=== PATIENT | male | born 1950 | race Caucasian/White ===

== ENCOUNTER 2021-06-09 14:34 | Inpatient (IN) ==
[~2021-06-09 14:34] MED LIST: cefTRIAXone 1,000 MG in 0.9 % Sodium Chloride Mini Bag 100 ML IVPB SCH
[2021-06-09] MEDS ORDERED: Naloxone 0.4 MG/ML INJ IVP PRN (19:31)
[2021-06-09] MEDS ORDERED: Acetaminophen 325 MG TABLET PO PRN (19:31)
[2021-06-09] MEDS ORDERED: Ondansetron 4 MG/2 ML VIAL IVP PRN (19:31)
[2021-06-09] MEDS ORDERED: *HR* Metoprolol 5 MG/5 ML VIAL IVP ONE (19:44)
[2021-06-09] MEDS ORDERED: Dextrose Gel 15 GM/37.5 ML TUBE PO PRN ×2 (19:45)
[2021-06-09] MEDS ORDERED: D5% in Water 1,000 ML IVC PRN (19:45)
[2021-06-09] MEDS ORDERED: *HR* Dextrose 50 % in Water (Syg) 50 ML SYRINGE IVP PRN (19:45)
[2021-06-09] MEDS ORDERED: *HR* Heparin 5,000 UNIT/ML VIAL IVP PRN ×2 (19:46)
[2021-06-09] MEDS ORDERED: Perflutren Lipid Microsphere 1.3 ML in 0.9 % Sodium Chloride 8.7 ML IVP PRN (20:12)
[2021-06-09 20:31] LABS: INR 1.3
[2021-06-09 20:53] LABS: Activated Partial Thrombo Time 117.1 Seconds (26.0-36.0)
[2021-06-09] MEDS ORDERED: Vancomycin 1,750 MG in 0.9 % Sodium Chloride 250 ML IVPB SCH (21:00)
[2021-06-09] MEDS ORDERED: Morphine Sulfate 2 MG/ML SYRINGE IVP ONE (21:01)
[2021-06-09] MEDS: Heparin 25,000UNIT/250ML 1/2NS 25,000 UNIT/250 ML IV.SOLN IVC SCH (21:23)
[2021-06-09] MEDS: TACROLIMUS 1MG CAPSULE PO SCH (21:39)
[2021-06-09] MEDS: Metoprolol 100 MG TABLET PO SCH (21:40)
[2021-06-09] MEDS ORDERED: Aspirin 325 MG TABLET PO ONE (21:50)
[2021-06-09] MEDS ORDERED: Vancomycin 2,000 MG/520 ML IV.SOLN IVPB ONE (22:00)
[2021-06-09] MEDS: Melatonin 3 MG TABLET PO PRN (23:12)
[2021-06-09] MEDS: Piperacillin/Tazobactam 3.375 GM in 0.9 % Sodium Chloride Mini Bag 100 ML IVPB SCH (23:19)
[2021-06-10] MEDS: Insulin LISPRO 300 UNITS/3 ML VIAL SUBQ SCH ×4 (00:07→19:48)
[2021-06-10 05:02] LABS: Heparin anti-factor XA UFH 0.34 IU/mL (0.30-0.70)
[2021-06-10 05:43] LABS: Troponin I 1.23 ng/mL (< 0.04)
[2021-06-10 06:31] LABS: Hematocrit 37.1 % (37.5-50.1); Hemoglobin 11.7 g/dL (12.9-16.9); Mean Corpuscular HGB Conc 31.5 g/dL (31.6-35.5); Mean Corpuscular Hemoglobin 29.8 pg (28.0-33.3); Mean Corpuscular Volume 94.6 fL (83.0-100.0); Mean Platelet Volume 11.8 fL (9.4-12.4); Platelet Count 207 K/mcL (140-400); Red Blood Count 3.92 M/mcL (4.19-5.50); Red Cell Distribution Width 13.9 % (11.5-14.5); White Blood Count 22.2 K/mcL (4.3-11.1)
[2021-06-10 06:49] LABS: Albumin 3.2 g/dL (3.5-5.7); Albumin/Globulin Ratio 1.1 (1.1-2.2); Bilirubin,Total 1.2 mg/dL (0.3-1.0); Calcium 8.9 mg/dL (8.6-10.3); Potassium 4.3 mEq/L (3.5-5.1); Total Protein 6.2 g/dL (6.4-8.9)
[2021-06-10] MEDS: Piperacillin/Tazobactam 3.375 GM in 0.9 % Sodium Chloride Mini Bag 100 ML IVPB SCH ×2 (08:24→16:17)
[2021-06-10] MEDS: Azithromycin 500 MG in 0.9 % Sodium Chloride 250 ML IVPB SCH (08:26)
[2021-06-10] MEDS: Furosemide 40 MG/4 ML VIAL IVP SCH (08:27)
[2021-06-10] MEDS: TACROLIMUS 1MG CAPSULE PO SCH ×2 (08:27→20:59)
[2021-06-10] MEDS: Metoprolol 100 MG TABLET PO SCH ×2 (08:27→20:58)
[2021-06-10] MEDS: Heparin 25,000UNIT/250ML 1/2NS 25,000 UNIT/250 ML IV.SOLN IVC SCH (08:28)
[2021-06-10] MEDS ORDERED: Azithromycin 500 MG in 0.9 % Sodium Chloride 250 ML IVPB SCH (09:00)
[2021-06-10] MEDS: Insulin DETEMIR 100 UNIT/ML X5UNITS SUBQ SCH (20:58)
[2021-06-10] MEDS ORDERED: Vancomycin 1,750 MG/517.5 ML IV.SOLN IVPB SCH (22:00)
[2021-06-11] MEDS: Insulin LISPRO 300 UNITS/3 ML VIAL SUBQ SCH ×4 (00:56→19:11)
[2021-06-11] MEDS: Piperacillin/Tazobactam 3.375 GM in 0.9 % Sodium Chloride Mini Bag 100 ML IVPB SCH ×4 (00:57→23:05)
[2021-06-11] MEDS: Heparin 25,000UNIT/250ML 1/2NS 25,000 UNIT/250 ML IV.SOLN IVC SCH ×2 (02:41→21:00)
[2021-06-11] MEDS ORDERED: Furosemide 20 MG/2 ML VIAL IVP ONE (05:06)
[2021-06-11] MEDS ORDERED: Albumin 25% 25gram/100mL 25 GM/100 ML IV.SOLN IVPB ONE (05:06)
[2021-06-11] MEDS: Metoprolol 100 MG TABLET PO SCH ×2 (08:07→20:58)
[2021-06-11] MEDS: Furosemide 40 MG/4 ML VIAL IVP SCH ×2 (08:08→21:46)
[2021-06-11] MEDS: TACROLIMUS 1MG CAPSULE PO SCH ×2 (08:08→21:46)
[2021-06-11 09:05] LABS: Basophils # 0.1 K/mcL (0.0-0.2); Basophils % 0.3 %; Eosinophils # 0.1 K/mcL (0.0-0.6); Eosinophils % 0.3 %; Hematocrit 37.7 % (37.5-50.1); Immature Granulocytes % 0.8 % (0-4); Lymphocytes # 2.1 K/mcL (0.6-4.6); Lymphocytes % 9.1 %; Mean Corpuscular HGB Conc 31.8 g/dL (31.6-35.5); Mean Corpuscular Hemoglobin 29.7 pg (28.0-33.3); Mean Corpuscular Volume 93.3 fL (83.0-100.0); Mean Platelet Volume 11.9 fL (9.4-12.4); Monocytes # 1.6 K/mcL (0.0-1.3); Monocytes % 7.1 %; Neutrophils # 18.6 K/mcL (1.6-8.9); Platelet Count 257 K/mcL (140-400); Red Blood Count 4.04 M/mcL (4.19-5.50); Red Cell Distribution Width 13.7 % (11.5-14.5); Segmented Neutrophils % 82.4 %; White Blood Count 22.6 K/mcL (4.3-11.1)
[2021-06-11 09:37] LABS: BUN/Creatinine Ratio 34 (6-26); Blood Urea Nitrogen 48 mg/dL (8-23); Calcium 8.9 mg/dL (8.6-10.3); Carbon Dioxide 26 mEq/L (23-29); Chloride 108 mEq/L (98-107); Glucose 217 mg/dL (70-105); Osmolality,Calculated 317 (280-300); Potassium 3.8 mEq/L (3.5-5.1); Sodium 144 mEq/L (136-145); eGFR For African Americans > 60 (> 60); eGFR For Non-African Americans 50 (> 60)
[2021-06-11 10:26] LABS: Troponin I 0.32 ng/mL (< 0.04)
[2021-06-11] MEDS: Azithromycin 500 MG in 0.9 % Sodium Chloride 250 ML IVPB SCH (10:52)
[2021-06-11] MEDS: DilTIAZem 50 MG/50 ML IV.SOLN IVC SCH ×2 (12:10→18:39)
[2021-06-11] MEDS ORDERED: Furosemide 40 MG/4 ML VIAL IVP ONE (14:02)
[2021-06-11 14:36] LABS: C-Reactive Protein 284 mg/L (Less than 10)
[2021-06-11] MEDS: Dexmedetomidine HCl 400 MCG/100 ML MLS IVC SCH ×2 (14:46→23:04)
[2021-06-11] MEDS ORDERED: Lidocaine -MPF 1% 5 ML AMPUL INFILT ONE (15:26)
[2021-06-11] MEDS: Doxycycline 100 MG in 0.9 % Sodium Chloride Mini Bag 100 ML IVPB SCH (19:05)
[2021-06-11] MEDS: allopurinoL 100 MG TABLET PO SCH (20:58)
[2021-06-11] MEDS: Apixaban 5 MG TABLET PO SCH (20:58)
[2021-06-11] MEDS: Insulin DETEMIR 100 UNIT/ML X5UNITS SUBQ SCH (20:59)
[2021-06-11] MEDS: Dexamethasone Sodium Phos/PF 10 MG/ML VIAL IVP SCH (23:04)
[2021-06-11 23:41] LABS: Adenovirus Not Detected (Not Detect); Bordetella Pertussis Not Detected (Not Detect); Chlamydophila pneumoniae Not Detected (Not Detect); Coronavirus 229E Not Detected (Not Detect); Coronavirus HKU1 Not Detected (Not Detect); Coronavirus NL63 Not Detected (Not Detect); Coronavirus OC43 Not Detected (Not Detect); Human Metapneumovirus Not Detected (Not Detect); Human Rhinovirus/Enterovirus Not Detected (Not Detect); Influenza A Subtype 2009 H1 Not Detected (Not Detect); Influenza B Not Detected (Not Detect); Mycoplasma pneumoniae Not Detected (Not Detect); Parainfluenza Virus 1 Not Detected (Not Detect); Parainfluenza Virus 2 Not Detected (Not Detect); Parainfluenza Virus 3 Not Detected (Not Detect); Parainfluenza Virus 4 Not Detected (Not Detect); Respiratory Syncytial Virus Not Detected (Not Detect); SARS-CoV-2 Not Detected (Not Detect)
[2021-06-12] MEDS: Insulin LISPRO 300 UNITS/3 ML VIAL SUBQ SCH ×5 (00:30→23:50)
[2021-06-12] MEDS: DilTIAZem 50 MG/50 ML IV.SOLN IVC SCH ×2 (01:59→12:47)
[2021-06-12] MEDS: Dexmedetomidine HCl 400 MCG/100 ML MLS IVC SCH ×3 (04:22→22:44)
[2021-06-12] MEDS: Doxycycline 100 MG in 0.9 % Sodium Chloride Mini Bag 100 ML IVPB SCH ×2 (04:23→20:44)
[2021-06-12] MEDS: Dexamethasone Sodium Phos/PF 10 MG/ML VIAL IVP SCH (09:28)
[2021-06-12] MEDS: Furosemide 40 MG/4 ML VIAL IVP SCH (09:29)
[2021-06-12] MEDS: Metoprolol 100 MG TABLET PO SCH ×2 (09:30→20:45)
[2021-06-12] MEDS: TACROLIMUS 1MG CAPSULE PO SCH ×2 (09:30→20:45)
[2021-06-12] MEDS: Apixaban 5 MG TABLET PO SCH ×2 (09:30→20:44)
[2021-06-12] MEDS: allopurinoL 100 MG TABLET PO SCH ×2 (09:30→20:45)
[2021-06-12 09:43] LABS: Hematocrit 34.1 % (37.5-50.1); Mean Corpuscular HGB Conc 32.3 g/dL (31.6-35.5); Mean Corpuscular Hemoglobin 30.4 pg (28.0-33.3); Mean Corpuscular Volume 94.2 fL (83.0-100.0); Mean Platelet Volume 11.7 fL (9.4-12.4); Platelet Count 202 K/mcL (140-400); Red Blood Count 3.62 M/mcL (4.19-5.50); Red Cell Distribution Width 13.4 % (11.5-14.5); White Blood Count 12.6 K/mcL (4.3-11.1)
[2021-06-12] MEDS: Piperacillin/Tazobactam 3.375 GM in 0.9 % Sodium Chloride Mini Bag 100 ML IVPB SCH ×3 (09:54→22:45)
[2021-06-12 10:02] LABS: Calcium 8.5 mg/dL (8.6-10.3); Potassium 4.1 mEq/L (3.5-5.1)
[2021-06-12] MEDS: Insulin DETEMIR 100 UNIT/ML X5UNITS SUBQ SCH (21:24)
[2021-06-13] MEDS: Doxycycline 100 MG in 0.9 % Sodium Chloride Mini Bag 100 ML IVPB SCH ×2 (06:07→17:51)
[2021-06-13] MEDS: Insulin LISPRO 300 UNITS/3 ML VIAL SUBQ SCH ×3 (06:08→17:48)
[2021-06-13 06:42] LABS: Hematocrit 33.5 % (37.5-50.1); Mean Corpuscular HGB Conc 32.8 g/dL (31.6-35.5); Mean Corpuscular Hemoglobin 30.6 pg (28.0-33.3); Mean Corpuscular Volume 93.1 fL (83.0-100.0); Mean Platelet Volume 12.2 fL (9.4-12.4); Platelet Count 252 K/mcL (140-400); Red Cell Distribution Width 13.4 % (11.5-14.5); White Blood Count 19.3 K/mcL (4.3-11.1)
[2021-06-13 07:00] LABS: Calcium 8.7 mg/dL (8.6-10.3); Potassium 4.1 mEq/L (3.5-5.1)
[2021-06-13] MEDS: allopurinoL 100 MG TABLET PO SCH ×2 (08:40→21:16)
[2021-06-13] MEDS: TACROLIMUS 1MG CAPSULE PO SCH ×2 (08:40→21:16)
[2021-06-13] MEDS: Metoprolol 100 MG TABLET PO SCH ×2 (08:40→21:16)
[2021-06-13] MEDS: Dexamethasone Sodium Phos/PF 10 MG/ML VIAL IVP SCH (08:40)
[2021-06-13] MEDS: Apixaban 5 MG TABLET PO SCH ×2 (08:40→21:16)
[2021-06-13] MEDS: Piperacillin/Tazobactam 3.375 GM in 0.9 % Sodium Chloride Mini Bag 100 ML IVPB SCH ×3 (08:41→23:44)
[2021-06-13] MEDS ORDERED: Furosemide 40 MG/4 ML VIAL IVP SCH (09:00)
[2021-06-13] MEDS ORDERED: dexAMETHasone 4 MG TABLET PO ONE (10:38)
[2021-06-13] MEDS ORDERED: Insulin DETEMIR 100 UNIT/ML X5UNITS SUBQ ONE (10:54)
[2021-06-13] MEDS: Dexmedetomidine HCl 400 MCG/100 ML MLS IVC SCH (12:17)
[2021-06-13 16:51] LABS: Bacteria,Urine Few per hpf (None-Few); Bilirubin,Urine Negative (Negative); Blood,Urine Moderate (Negative); Clarity,Urine Clear (Clear); Color,Urine Light-Yellow (Yellow); Glucose,Urine (UA) Normal (Normal); Hyaline Casts,Urine Few per lpf (None Seen); Ketones,Urine Negative (Negative); Leukocyte Esterase,Urine Negative (Negative); Mucus,Urine Few per lpf (None-Few); Nitrite,Urine Negative (Negative); PH,Urine 5.5 pH Units (5.0-8.0); Protein,Urine 30 mg/dL (Neg-Trace); RBC,Urine 50-100 per hpf (0-3); Urobilinogen,Urine Normal (Normal); WBC,Urine 0-3 per hpf (0-3)
[2021-06-13 18:10] LABS: Creatinine,Urine 100 mg/dL
[2021-06-13] MEDS: Insulin DETEMIR 100 UNIT/ML X5UNITS SUBQ SCH (21:16)
[2021-06-14] MEDS: Insulin LISPRO 300 UNITS/3 ML VIAL SUBQ SCH ×6 (00:26→16:42)
[2021-06-14] MEDS: Doxycycline 100 MG in 0.9 % Sodium Chloride Mini Bag 100 ML IVPB SCH ×2 (05:38→18:39)
[2021-06-14] MEDS: Pantoprazole 40 MG VIAL IVP SCH ×2 (05:38→18:39)
[2021-06-14] MEDS: allopurinoL 100 MG TABLET PO SCH ×2 (08:15→20:14)
[2021-06-14] MEDS: Metoprolol 100 MG TABLET PO SCH ×2 (08:15→20:14)
[2021-06-14] MEDS: Apixaban 5 MG TABLET PO SCH ×2 (08:15→20:13)
[2021-06-14] MEDS: Piperacillin/Tazobactam 3.375 GM in 0.9 % Sodium Chloride Mini Bag 100 ML IVPB SCH ×3 (08:16→23:45)
[2021-06-14] MEDS: TACROLIMUS 1MG CAPSULE PO SCH (08:28)
[2021-06-14] MEDS: Insulin DETEMIR 100 UNIT/ML X5UNITS SUBQ SCH ×2 (08:38→20:21)
[2021-06-14 08:52] LABS: Basophils # 0.1 K/mcL (0.0-0.2); Basophils % 0.3 %; Hematocrit 31.7 % (37.5-50.1); Hemoglobin 10.4 g/dL (12.9-16.9); Immature Granulocytes % 2.7 % (0-4); Lymphocytes # 1.7 K/mcL (0.6-4.6); Lymphocytes % 7.2 %; Mean Corpuscular HGB Conc 32.8 g/dL (31.6-35.5); Mean Corpuscular Hemoglobin 29.7 pg (28.0-33.3); Mean Corpuscular Volume 90.6 fL (83.0-100.0); Mean Platelet Volume 11.6 fL (9.4-12.4); Monocytes % 4.3 %; Neutrophils # 20.4 K/mcL (1.6-8.9); Platelet Count 347 K/mcL (140-400); Red Cell Distribution Width 13.5 % (11.5-14.5); Segmented Neutrophils % 85.5 %; White Blood Count 23.9 K/mcL (4.3-11.1)
[2021-06-14 10:07] LABS: Calcium 8.1 mg/dL (8.6-10.3); Potassium 3.8 mEq/L (3.5-5.1)
[2021-06-14] MEDS ORDERED: Insulin DETEMIR 100 UNIT/ML X5UNITS SUBQ ONE (14:10)
[2021-06-14] MEDS: Dexmedetomidine HCl 400 MCG/100 ML MLS IVC SCH (16:42)
[2021-06-14] MEDS ORDERED: Insulin LISPRO 300 UNITS/3 ML VIAL SUBQ SCH (21:00)
[2021-06-15 02:00] LABS: Blood Urea Nitrogen > 130 mg/dL (8-23); Carbon Dioxide 26 mEq/L (23-29); Chloride 103 mEq/L (98-107); Glucose 387 mg/dL (70-105); Potassium 4.1 mEq/L (3.5-5.1); Sodium 135 mEq/L (136-145); eGFR For African Americans 35 (> 60); eGFR For Non-African Americans 29 (> 60)
[2021-06-15 04:42] LABS: Basophils % 0.4 %; Mean Platelet Volume 12.2 fL (9.4-12.4); Nucleated Red Blood Cells 0.1 /100 WBC (0)
[2021-06-15 04:43] LABS: Basophils # 0.1 K/mcL (0.0-0.2); Hematocrit 25.3 % (37.5-50.1); Hemoglobin 8.6 g/dL (12.9-16.9); Immature Granulocytes % 4.7 % (0-4); Lymphocytes # 4.7 K/mcL (0.6-4.6); Lymphocytes % 16.8 %; Mean Corpuscular Hemoglobin 30.6 pg (28.0-33.3); Monocytes # 2.3 K/mcL (0.0-1.3); Monocytes % 8.3 %; Neutrophils # 19.6 K/mcL (1.6-8.9); Platelet Count 299 K/mcL (140-400); Red Blood Count 2.81 M/mcL (4.19-5.50); Red Cell Distribution Width 13.4 % (11.5-14.5); Segmented Neutrophils % 69.8 %; White Blood Count 28.1 K/mcL (4.3-11.1)
[2021-06-15] MEDS: Pantoprazole 40 MG VIAL IVP SCH ×2 (05:40→16:59)
[2021-06-15] MEDS: Doxycycline 100 MG in 0.9 % Sodium Chloride Mini Bag 100 ML IVPB SCH ×2 (05:41→16:58)
[2021-06-15 06:01] LABS: Platelet Estimate Normal (Normal)
[2021-06-15] MEDS: Dexmedetomidine HCl 400 MCG/100 ML MLS IVC SCH (07:26)
[2021-06-15] MEDS: Piperacillin/Tazobactam 3.375 GM in 0.9 % Sodium Chloride Mini Bag 100 ML IVPB SCH ×2 (07:58→16:58)
[2021-06-15] MEDS: allopurinoL 100 MG TABLET PO SCH ×2 (07:58→20:17)
[2021-06-15] MEDS: Apixaban 5 MG TABLET PO SCH (07:59)
[2021-06-15] MEDS: Metoprolol 100 MG TABLET PO SCH ×2 (07:59→20:17)
[2021-06-15] MEDS: Insulin LISPRO 300 UNITS/3 ML VIAL SUBQ SCH ×2 (08:10→20:29)
[2021-06-15] MEDS: Insulin DETEMIR 100 UNIT/ML X5UNITS SUBQ SCH (08:10)
[2021-06-15] MEDS ORDERED: 0.9 % Sodium Chloride 1,000 ML IVC SCH (09:30)
[2021-06-15] MEDS ORDERED: Insulin DETEMIR 100 UNIT/ML X5UNITS SUBQ ONE (10:10)
[2021-06-15] MEDS ORDERED: *HR* Dextrose 50 % in Water (Syg) 50 ML SYRINGE IVP PRN (12:31)
[2021-06-15] MEDS ORDERED: Insulin DETEMIR 100 UNIT/ML X5UNITS SUBQ SCH (21:00)
[2021-06-16] MEDS: Piperacillin/Tazobactam 3.375 GM in 0.9 % Sodium Chloride Mini Bag 100 ML IVPB SCH ×4 (00:23→23:57)
[2021-06-16] MEDS: Pantoprazole 40 MG VIAL IVP SCH ×2 (06:19→18:36)
[2021-06-16] MEDS: Doxycycline 100 MG in 0.9 % Sodium Chloride Mini Bag 100 ML IVPB SCH ×2 (06:19→18:36)
[2021-06-16] MEDS ORDERED: 0.9 % Sodium Chloride 250 ML ONE (10:14)
[2021-06-16] MEDS ORDERED: 0.9 % Sodium Chloride 250 ML IVC ONE (10:15)
[2021-06-16 10:18] LABS: Hematocrit 17.7 % (37.5-50.1); Mean Corpuscular HGB Conc 32.8 g/dL (31.6-35.5); Mean Corpuscular Hemoglobin 30.9 pg (28.0-33.3); Mean Corpuscular Volume 94.1 fL (83.0-100.0); Mean Platelet Volume 12.3 fL (9.4-12.4); Platelet Count 288 K/mcL (140-400); Red Blood Count 1.88 M/mcL (4.19-5.50)
[2021-06-16 10:23] LABS: Hemoglobin 5.8 g/dL (12.9-16.9)
[2021-06-16 10:24] LABS: White Blood Count 51.3 K/mcL (4.3-11.1)
[2021-06-16 10:45] LABS: Lymphocytes # 9.2 K/mcL (0.6-4.6); Platelet Estimate Normal (Normal)
[2021-06-16] MEDS: allopurinoL 100 MG TABLET PO SCH ×2 (11:27→20:56)
[2021-06-16] MEDS: Metoprolol 100 MG TABLET PO SCH ×2 (11:27→20:57)
[2021-06-16] MEDS: Albumin 25% 25gram/100mL 25 GM/100 ML IV.SOLN IVC SCH ×2 (11:28→13:09)
[2021-06-16] MEDS ORDERED: D5% in Water 1,000 ML IVC PRN (12:22)
[2021-06-16] MEDS ORDERED: Dextrose Gel 15 GM/37.5 ML TUBE PO PRN ×2 (12:22)
[2021-06-16] MEDS ORDERED: *HR* Dextrose 50 % in Water (Syg) 50 ML SYRINGE IVP PRN (12:22)
[2021-06-16] MEDS ORDERED: Lidocaine -MPF 2% 5 ML VIAL ONE (13:41)
[2021-06-16] MEDS ORDERED: *HR* Digoxin 0.5 MG/2 ML AMPUL IVP ONE (13:51)
[2021-06-16] MEDS ORDERED: *HR* EPINEPHrine 1 MG/10 ML SYRINGE INTRATRACH PRN (14:15)
[2021-06-16] MEDS: mycophenolate mofetiL 250 MG CAPSULE PO SCH ×2 (15:03→20:56)
[2021-06-16 15:05] LABS: Blood Urea Nitrogen > 130 mg/dL (8-23); Calcium 8.3 mg/dL (8.6-10.3); Carbon Dioxide 24 mEq/L (23-29); Chloride 105 mEq/L (98-107); Glucose 359 mg/dL (70-105); Potassium 4.9 mEq/L (3.5-5.1); Sodium 137 mEq/L (136-145); eGFR For African Americans 29 (> 60); eGFR For Non-African Americans 24 (> 60)
[2021-06-16] MEDS ORDERED: Insulin LISPRO 300 UNITS/3 ML VIAL SUBQ SCH ×2 (16:00→21:00)
[2021-06-16 18:56] LABS: Mean Platelet Volume 12.2 fL (9.4-12.4); Nucleated Red Blood Cells 2.4 /100 WBC (0)
[2021-06-16 18:58] LABS: Hematocrit 16.9 % (37.5-50.1); Mean Corpuscular Hemoglobin 31.2 pg (28.0-33.3); Mean Corpuscular Volume 97.7 fL (83.0-100.0); Monocytes # 2.7 K/mcL (0.0-1.3); Platelet Count 240 K/mcL (140-400); Red Blood Count 1.73 M/mcL (4.19-5.50); Red Cell Distribution Width 13.7 % (11.5-14.5)
[2021-06-16 19:00] LABS: White Blood Count 45.7 K/mcL (4.3-11.1)
[2021-06-16 19:01] LABS: Hemoglobin 5.4 g/dL (12.9-16.9)
[2021-06-16 19:04] LABS: INR 1.8; Prothrombin Time 20.4 Seconds (9.4-12.1)
[2021-06-16 19:38] LABS: Lymphocytes # 5.5 K/mcL (0.6-4.6); Neutrophils # 35.2 K/mcL (1.6-8.9)
[2021-06-16 19:39] LABS: Hypochromasia Present (Not Present); Platelet Estimate Normal (Normal)
[2021-06-16 19:40] LABS: Microcytosis Present (Not Present)
[2021-06-16] MEDS: Melatonin 3 MG TABLET PO PRN (20:56)
[2021-06-16] MEDS: Insulin LISPRO 300 UNITS/3 ML VIAL SUBQ SCH (20:56)
[2021-06-16] MEDS: Insulin DETEMIR 100 UNIT/ML X5UNITS SUBQ SCH (20:56)
[2021-06-16] MEDS: *HR* Digoxin 0.5 MG/2 ML AMPUL IVP SCH (20:57)
[2021-06-16] MEDS: TACROLIMUS 1MG CAPSULE PO SCH (21:04)
[2021-06-16] MEDS ORDERED: Calcium Gluconate 1gm/50mL 1 GM/50 ML BAG IVPB ONE (23:32)
[2021-06-16] MEDS ORDERED: Magnesium Sulfate 1 GM/102 ML PIGGYBACK IVPB ONE (23:32)
[2021-06-16 23:39] LABS: Blood Urea Nitrogen > 130 mg/dL (8-23); Calcium 8.2 mg/dL (8.6-10.3); Carbon Dioxide 22 mEq/L (23-29); Chloride 104 mEq/L (98-107); Glucose 367 mg/dL (70-105); Potassium 4.7 mEq/L (3.5-5.1); Sodium 136 mEq/L (136-145); eGFR For African Americans 26 (> 60); eGFR For Non-African Americans 22 (> 60)
[2021-06-17] MEDS: *HR* Digoxin 0.5 MG/2 ML AMPUL IVP SCH
[2021-06-17 01:52] LABS: Hematocrit 18.1 % (37.5-50.1)
[2021-06-17] MEDS ORDERED: 0.9 % Sodium Chloride 250 ML IVC SCH (02:15)
[2021-06-17] MEDS: Doxycycline 100 MG in 0.9 % Sodium Chloride Mini Bag 100 ML IVPB SCH (06:11)
[2021-06-17] MEDS: Pantoprazole 40 MG VIAL IVP SCH ×2 (06:11→16:12)
[2021-06-17] MEDS: Insulin LISPRO 300 UNITS/3 ML VIAL SUBQ SCH ×4 (09:19→20:16)
[2021-06-17] MEDS: mycophenolate mofetiL 250 MG CAPSULE PO SCH ×2 (09:20→20:18)
[2021-06-17] MEDS: allopurinoL 100 MG TABLET PO SCH ×2 (09:21→20:18)
[2021-06-17] MEDS: Metoprolol 100 MG TABLET PO SCH ×2 (09:21→20:18)
[2021-06-17] MEDS: TACROLIMUS 1MG CAPSULE PO SCH ×2 (09:21→20:19)
[2021-06-17] MEDS: Piperacillin/Tazobactam 3.375 GM in 0.9 % Sodium Chloride Mini Bag 100 ML IVPB SCH (09:26)
[2021-06-17 11:26] LABS: Hematocrit 21.3 % (37.5-50.1); Mean Corpuscular HGB Conc 32.9 g/dL (31.6-35.5); Mean Corpuscular Hemoglobin 30.6 pg (28.0-33.3); Mean Platelet Volume 12.5 fL (9.4-12.4); Nucleated Red Blood Cells 1.3 /100 WBC (0); Platelet Count 228 K/mcL (140-400); Red Blood Count 2.29 M/mcL (4.19-5.50); Red Cell Distribution Width 15.3 % (11.5-14.5)
[2021-06-17 11:30] LABS: White Blood Count 38.6 K/mcL (4.3-11.1)
[2021-06-17 11:45] LABS: Alanine Aminotransferase 20 Units/L (7-52); Albumin 2.5 g/dL (3.5-5.7); Albumin/Globulin Ratio 1.7 (1.1-2.2); Alkaline Phosphatase 41 Units/L (34-104); Amylase 69 Units/L (29-103); Aspartate Amino Transferase 54 Units/L (13-39); Bilirubin,Direct 0.3 mg/dL (0.0-0.2); Bilirubin,Indirect 0.7 mg/dL (0.0-1.0); Blood Urea Nitrogen > 130 mg/dL (8-23); C-Reactive Protein 25 mg/L (Less than 10); Calcium 7.6 mg/dL (8.6-10.3); Carbon Dioxide 24 mEq/L (23-29); Chloride 110 mEq/L (98-107); Globulin 1.5 g/dL (2.4-3.5); Glucose 252 mg/dL (70-105); Lipase 128 Units/L (11-82); Potassium 3.9 mEq/L (3.5-5.1); Sodium 140 mEq/L (136-145); eGFR For African Americans 30 (> 60); eGFR For Non-African Americans 25 (> 60)
[2021-06-17 12:05] LABS: Lymphocytes # 7.3 K/mcL (0.6-4.6); Monocytes # 1.5 K/mcL (0.0-1.3); Neutrophils # 29.7 K/mcL (1.6-8.9); Platelet Estimate Normal (Normal)
[2021-06-17] MEDS: Albumin 25% 25gram/100mL 25 GM/100 ML IV.SOLN IVPB SCH (16:10)
[2021-06-17] MEDS: Insulin DETEMIR 100 UNIT/ML X5UNITS SUBQ SCH (20:19)
[2021-06-18] MEDS: Albumin 25% 25gram/100mL 25 GM/100 ML IV.SOLN IVPB SCH ×4 (00:21→23:50)
[2021-06-18 04:23] LABS: Hemoglobin 6.8 g/dL (12.9-16.9); Mean Platelet Volume 11.9 fL (9.4-12.4); Nucleated Red Blood Cells 2.1 /100 WBC (0)
[2021-06-18 04:24] LABS: Hematocrit 20.4 % (37.5-50.1); Mean Corpuscular HGB Conc 33.3 g/dL (31.6-35.5); Mean Corpuscular Hemoglobin 31.6 pg (28.0-33.3); Mean Corpuscular Volume 94.9 fL (83.0-100.0); Platelet Count 226 K/mcL (140-400); Red Blood Count 2.15 M/mcL (4.19-5.50); Red Cell Distribution Width 15.9 % (11.5-14.5)
[2021-06-18 04:37] LABS: Blood Urea Nitrogen > 130 mg/dL (8-23); Calcium 8.6 mg/dL (8.6-10.3); Carbon Dioxide 27 mEq/L (23-29); Chloride 111 mEq/L (98-107); Glucose 143 mg/dL (70-105); Sodium 143 mEq/L (136-145); eGFR For African Americans 35 (> 60); eGFR For Non-African Americans 29 (> 60)
[2021-06-18 04:45] LABS: White Blood Count 33.6 K/mcL (4.3-11.1)
[2021-06-18] MEDS: Pantoprazole 40 MG VIAL IVP SCH ×2 (05:30→17:18)
[2021-06-18 06:26] LABS: Lymphocytes # 6.1 K/mcL (0.6-4.6); Monocytes # 0.3 K/mcL (0.0-1.3); Neutrophils # 26.9 K/mcL (1.6-8.9); Platelet Estimate Normal (Normal); Reactive Lymphocytes Present (Not Present)
[2021-06-18] MEDS ORDERED: Furosemide 40 MG/4 ML VIAL IVP ONE ×2 (08:17→18:00)
[2021-06-18] MEDS: Metoprolol 100 MG TABLET PO SCH ×2 (08:58→21:06)
[2021-06-18] MEDS: allopurinoL 100 MG TABLET PO SCH ×2 (08:58→21:06)
[2021-06-18] MEDS: mycophenolate mofetiL 250 MG CAPSULE PO SCH ×2 (08:58→21:06)
[2021-06-18] MEDS: TACROLIMUS 1MG CAPSULE PO SCH ×2 (08:59→22:17)
[2021-06-18] MEDS: Insulin LISPRO 300 UNITS/3 ML VIAL SUBQ SCH ×4 (08:59→21:07)
[2021-06-18 11:15] LABS: Hematocrit 21.8 % (37.5-50.1); Hemoglobin 6.9 g/dL (12.9-16.9)
[2021-06-18] MEDS ORDERED: 0.9 % Sodium Chloride 250 ML IVC SCH (12:30)
[2021-06-18] MEDS ORDERED: 0.9 % Sodium Chloride 250 ML ONE (13:32)
[2021-06-18] MEDS: Insulin DETEMIR 100 UNIT/ML X5UNITS SUBQ SCH (21:07)
[2021-06-19] MEDS: Pantoprazole 40 MG VIAL IVP SCH ×2 (04:38→17:04)
[2021-06-19] MEDS: Insulin LISPRO 300 UNITS/3 ML VIAL SUBQ SCH ×4 (08:28→21:00)
[2021-06-19] MEDS: Albumin 25% 25gram/100mL 25 GM/100 ML IV.SOLN IVPB SCH ×2 (08:42→16:09)
[2021-06-19] MEDS: mycophenolate mofetiL 250 MG CAPSULE PO SCH ×2 (08:42→20:59)
[2021-06-19] MEDS: allopurinoL 100 MG TABLET PO SCH ×2 (08:42→20:59)
[2021-06-19] MEDS: Metoprolol 100 MG TABLET PO SCH ×2 (08:42→21:00)
[2021-06-19] MEDS: amLODIPine 5 MG TABLET PO SCH (08:42)
[2021-06-19] MEDS: TACROLIMUS 1MG CAPSULE PO SCH ×2 (09:16→20:59)
[2021-06-19 10:17] LABS: Basophils # 0.1 K/mcL (0.0-0.2); Basophils % 0.2 %; Eosinophils # 0.3 K/mcL (0.0-0.6); Eosinophils % 1.1 %; Hematocrit 25.6 % (37.5-50.1); Hemoglobin 8.2 g/dL (12.9-16.9); Immature Granulocytes % 4.8 % (0-4); Lymphocytes # 2.9 K/mcL (0.6-4.6); Lymphocytes % 12.3 %; Mean Corpuscular Hemoglobin 30.8 pg (28.0-33.3); Mean Corpuscular Volume 96.2 fL (83.0-100.0); Mean Platelet Volume 11.3 fL (9.4-12.4); Monocytes # 2.2 K/mcL (0.0-1.3); Monocytes % 9.2 %; Neutrophils # 17.1 K/mcL (1.6-8.9); Nucleated Red Blood Cells 0.7 /100 WBC (0); Platelet Count 220 K/mcL (140-400); Red Blood Count 2.66 M/mcL (4.19-5.50); Red Cell Distribution Width 17.2 % (11.5-14.5); Segmented Neutrophils % 72.4 %; White Blood Count 23.6 K/mcL (4.3-11.1)
[2021-06-19 10:25] LABS: INR 1.4; Prothrombin Time 15.2 Seconds (9.4-12.1)
[2021-06-19 10:37] LABS: Calcium 9.2 mg/dL (8.6-10.3); Potassium 3.8 mEq/L (3.5-5.1)
[2021-06-19] MEDS: Furosemide 40 MG/4 ML VIAL IVP SCH (12:00)
[2021-06-19] MEDS: Insulin DETEMIR 100 UNIT/ML X5UNITS SUBQ SCH (20:59)
[2021-06-20 03:05] LABS: Basophils % 0.1 %; Eosinophils # 0.4 K/mcL (0.0-0.6); Eosinophils % 1.7 %; Hematocrit 23.8 % (37.5-50.1); Hemoglobin 7.3 g/dL (12.9-16.9); Immature Granulocytes % 3.5 % (0-4); Lymphocytes # 2.8 K/mcL (0.6-4.6); Lymphocytes % 12.7 %; Mean Corpuscular HGB Conc 30.7 g/dL (31.6-35.5); Mean Corpuscular Hemoglobin 30.2 pg (28.0-33.3); Mean Corpuscular Volume 98.3 fL (83.0-100.0); Mean Platelet Volume 11.6 fL (9.4-12.4); Monocytes # 2.3 K/mcL (0.0-1.3); Monocytes % 10.3 %; Neutrophils # 15.7 K/mcL (1.6-8.9); Nucleated Red Blood Cells 0.3 /100 WBC (0); Platelet Count 212 K/mcL (140-400); Red Blood Count 2.42 M/mcL (4.19-5.50); Red Cell Distribution Width 17.9 % (11.5-14.5); Segmented Neutrophils % 71.7 %; White Blood Count 21.8 K/mcL (4.3-11.1)
[2021-06-20 03:17] LABS: Potassium 3.8 mEq/L (3.5-5.1)
[2021-06-20] MEDS: Pantoprazole 40 MG VIAL IVP SCH ×2 (06:09→16:56)
[2021-06-20] MEDS: Metoprolol 100 MG TABLET PO SCH ×2 (08:30→20:14)
[2021-06-20] MEDS: allopurinoL 100 MG TABLET PO SCH ×2 (08:30→20:14)
[2021-06-20] MEDS: amLODIPine 5 MG TABLET PO SCH (08:31)
[2021-06-20] MEDS: Aspirin Enteric Coated 81 MG Tablet PO SCH (08:31)
[2021-06-20] MEDS: Insulin LISPRO 300 UNITS/3 ML VIAL SUBQ SCH ×4 (08:31→20:14)
[2021-06-20] MEDS: Furosemide 40 MG/4 ML VIAL IVP SCH (08:31)
[2021-06-20] MEDS: mycophenolate mofetiL 250 MG CAPSULE PO SCH ×2 (08:31→20:14)
[2021-06-20] MEDS: TACROLIMUS 0.5 MG PO SCH ×2 (08:32→20:14)
[2021-06-20 12:50] LABS: Hematocrit 26.1 % (37.5-50.1); Hemoglobin 8.1 g/dL (12.9-16.9)
[2021-06-20 13:35] LABS: Folate > 22.3 ng/mL (3.0-16.0); Vitamin B12 824 pg/mL (250-1100)
[2021-06-20 15:23] LABS: Magnesium 1.9 mg/dL (1.6-2.6)
[2021-06-20] MEDS: Insulin DETEMIR 100 UNIT/ML X5UNITS SUBQ SCH (20:13)
[2021-06-20] MEDS: Melatonin 3 MG TABLET PO PRN (20:14)
[2021-06-21 06:31] LABS: ANA IgG by ELISA NONE DETECTED (None Detected)
[2021-06-21] MEDS: Pantoprazole 40 MG VIAL IVP SCH ×2 (06:42→20:18)
[2021-06-21] MEDS ORDERED: Iron Sucrose Complex 400 MG in 0.9 % Sodium Chloride 250 ML IVPB ONE (08:08)
[2021-06-21] MEDS: Insulin LISPRO 300 UNITS/3 ML VIAL SUBQ SCH ×4 (08:33→19:58)
[2021-06-21] MEDS: allopurinoL 100 MG TABLET PO SCH ×2 (08:34→20:17)
[2021-06-21] MEDS: Aspirin Enteric Coated 81 MG Tablet PO SCH (08:34)
[2021-06-21] MEDS: Metoprolol 100 MG TABLET PO SCH ×2 (08:34→20:17)
[2021-06-21] MEDS: TACROLIMUS 0.5 MG PO SCH ×2 (08:35→20:17)
[2021-06-21] MEDS: mycophenolate mofetiL 250 MG CAPSULE PO SCH ×2 (08:35→20:17)
[2021-06-21] MEDS: Furosemide 40 MG/4 ML VIAL IVP SCH (08:35)
[2021-06-21] MEDS: amLODIPine 5 MG TABLET PO SCH (08:35)
[2021-06-21 10:43] LABS: Hemoglobin 7.9 g/dL (12.9-16.9); Immature Granulocytes % 1.5 % (0-4); Lymphocytes % 10.7 %; Mean Corpuscular HGB Conc 30.4 g/dL (31.6-35.5); Mean Corpuscular Hemoglobin 29.8 pg (28.0-33.3); Mean Corpuscular Volume 98.1 fL (83.0-100.0); Mean Platelet Volume 11.1 fL (9.4-12.4); Monocytes % 9.8 %; Platelet Count 227 K/mcL (140-400); Red Blood Count 2.65 M/mcL (4.19-5.50); Red Cell Distribution Width 17.9 % (11.5-14.5); Segmented Neutrophils % 74.6 %; White Blood Count 20.6 K/mcL (4.3-11.1)
[2021-06-21 10:44] LABS: Basophils % 0.1 %; Eosinophils # 0.7 K/mcL (0.0-0.6); Eosinophils % 3.3 %; Lymphocytes # 2.2 K/mcL (0.6-4.6); Neutrophils # 15.4 K/mcL (1.6-8.9)
[2021-06-21 11:08] LABS: Calcium 9.1 mg/dL (8.6-10.3); Magnesium 2.1 mg/dL (1.6-2.6); Potassium 3.9 mEq/L (3.5-5.1)
[2021-06-21] MEDS: Insulin DETEMIR 100 UNIT/ML X5UNITS SUBQ SCH (19:59)
[2021-06-21 22:06] LABS: ANCA IFA Titer <1:20 (<1:20)
[2021-06-22 02:52] LABS: Basophils % 0.2 %; Eosinophils # 0.6 K/mcL (0.0-0.6); Eosinophils % 3.8 %; Hematocrit 24.1 % (37.5-50.1); Hemoglobin 7.6 g/dL (12.9-16.9); Immature Granulocytes % 1.2 % (0-4); Lymphocytes # 2.8 K/mcL (0.6-4.6); Lymphocytes % 16.6 %; Mean Corpuscular HGB Conc 31.5 g/dL (31.6-35.5); Mean Corpuscular Hemoglobin 30.9 pg (28.0-33.3); Mean Platelet Volume 11.6 fL (9.4-12.4); Monocytes # 1.8 K/mcL (0.0-1.3); Monocytes % 10.6 %; Neutrophils # 11.4 K/mcL (1.6-8.9); Platelet Count 206 K/mcL (140-400); Red Blood Count 2.46 M/mcL (4.19-5.50); Red Cell Distribution Width 17.8 % (11.5-14.5); Segmented Neutrophils % 67.6 %; White Blood Count 16.8 K/mcL (4.3-11.1)
[2021-06-22 03:13] LABS: Calcium 8.8 mg/dL (8.6-10.3); Potassium 3.8 mEq/L (3.5-5.1)
[2021-06-22] MEDS: Pantoprazole 40 MG VIAL IVP SCH ×2 (05:22→16:43)
[2021-06-22] MEDS ORDERED: Furosemide 40 MG TABLET PO SCH (09:00)
[2021-06-22] MEDS: amLODIPine 5 MG TABLET PO SCH (09:23)
[2021-06-22] MEDS: Metoprolol 100 MG TABLET PO SCH ×2 (09:23→20:32)
[2021-06-22] MEDS: TACROLIMUS 0.5 MG PO SCH ×2 (09:23→22:30)
[2021-06-22] MEDS: Aspirin Enteric Coated 81 MG Tablet PO SCH (09:23)
[2021-06-22] MEDS: allopurinoL 100 MG TABLET PO SCH ×2 (09:23→20:33)
[2021-06-22] MEDS: mycophenolate mofetiL 250 MG CAPSULE PO SCH ×2 (09:23→21:41)
[2021-06-22] MEDS: Insulin LISPRO 300 UNITS/3 ML VIAL SUBQ SCH ×4 (09:24→23:28)
[2021-06-22 10:42] LABS: ANCA IFA Pattern NONE DETECTED (None Detected); Serine Protease-3 Antibody 2 AU/mL (0-19)
[2021-06-22 17:12] LABS: Alpha 2 Globulin (PEP) 0.52 g/dL (0.48-1.05); Beta Globulin (PEP) 0.45 g/dL (0.48-1.10)
[2021-06-22] MEDS: Furosemide 40 MG TABLET PO SCH (20:38)
[2021-06-22] MEDS: Insulin DETEMIR 100 UNIT/ML X5UNITS SUBQ SCH (20:45)
[2021-06-22] MEDS: TACROLIMUS 1MG CAPSULE PO SCH (23:35)
[2021-06-23] MEDS: Pantoprazole 40 MG VIAL IVP SCH ×2 (05:33→16:57)
[2021-06-23 06:42] LABS: Hematocrit 26.8 % (37.5-50.1); Hemoglobin 8.4 g/dL (12.9-16.9); Mean Corpuscular HGB Conc 31.3 g/dL (31.6-35.5); Mean Corpuscular Hemoglobin 30.4 pg (28.0-33.3); Mean Corpuscular Volume 97.1 fL (83.0-100.0); Mean Platelet Volume 11.9 fL (9.4-12.4); Platelet Count 264 K/mcL (140-400); Red Blood Count 2.76 M/mcL (4.19-5.50); Red Cell Distribution Width 17.9 % (11.5-14.5); White Blood Count 19.6 K/mcL (4.3-11.1)
[2021-06-23 06:54] LABS: Calcium 9.1 mg/dL (8.6-10.3); Potassium 3.7 mEq/L (3.5-5.1)
[2021-06-23 06:55] LABS: IFE Reflexed IFE Done; Immunoglobulin A 125 mg/dL (68-408); Immunoglobulin G 457 mg/dL (768-1632); Immunoglobulin M 123 mg/dL (35-263)
[2021-06-23] MEDS: allopurinoL 100 MG TABLET PO SCH ×2 (08:39→20:10)
[2021-06-23] MEDS: amLODIPine 5 MG TABLET PO SCH (08:39)
[2021-06-23] MEDS: Metoprolol 100 MG TABLET PO SCH ×2 (08:39→20:10)
[2021-06-23] MEDS: Furosemide 40 MG TABLET PO SCH ×2 (08:40→16:58)
[2021-06-23] MEDS: mycophenolate mofetiL 250 MG CAPSULE PO SCH ×2 (08:40→20:10)
[2021-06-23] MEDS: Aspirin Enteric Coated 325 MG Tablet PO SCH (08:40)
[2021-06-23] MEDS: Insulin LISPRO 300 UNITS/3 ML VIAL SUBQ SCH ×4 (08:40→21:28)
[2021-06-23] MEDS: TACROLIMUS 0.5 MG PO SCH ×2 (08:47→23:16)
[2021-06-23] MEDS: Insulin DETEMIR 100 UNIT/ML X5UNITS SUBQ SCH (20:20)
[2021-06-24] MEDS: Pantoprazole 40 MG VIAL IVP SCH ×2 (05:46→17:01)
[2021-06-24] MEDS: Metoprolol 100 MG TABLET PO SCH ×2 (08:21→22:16)
[2021-06-24] MEDS: mycophenolate mofetiL 250 MG CAPSULE PO SCH ×2 (08:21→22:16)
[2021-06-24] MEDS: amLODIPine 5 MG TABLET PO SCH (08:22)
[2021-06-24] MEDS: Aspirin Enteric Coated 325 MG Tablet PO SCH (08:22)
[2021-06-24] MEDS: allopurinoL 100 MG TABLET PO SCH ×2 (08:22→22:16)
[2021-06-24] MEDS: Furosemide 40 MG TABLET PO SCH ×2 (08:22→17:02)
[2021-06-24] MEDS: TACROLIMUS 0.5 MG PO SCH ×2 (08:23→22:16)
[2021-06-24] MEDS: Insulin LISPRO 300 UNITS/3 ML VIAL SUBQ SCH ×4 (08:25→22:17)
[2021-06-24] MEDS: Insulin DETEMIR 100 UNIT/ML X5UNITS SUBQ SCH (22:19)
[2021-06-25] MEDS: Pantoprazole 40 MG VIAL IVP SCH ×2 (05:21→17:54)
[2021-06-25] MEDS: Insulin LISPRO 300 UNITS/3 ML VIAL SUBQ SCH ×3 (08:03→17:53)
[2021-06-25] MEDS: Furosemide 40 MG TABLET PO SCH ×2 (08:15→17:54)
[2021-06-25] MEDS: Aspirin Enteric Coated 325 MG Tablet PO SCH (09:38)
[2021-06-25] MEDS: mycophenolate mofetiL 250 MG CAPSULE PO SCH (09:39)
[2021-06-25] MEDS: amLODIPine 5 MG TABLET PO SCH (09:39)
[2021-06-25] MEDS: Metoprolol 100 MG TABLET PO SCH (09:39)
[2021-06-25] MEDS: allopurinoL 100 MG TABLET PO SCH (09:39)
[2021-06-25] MEDS: TACROLIMUS 0.5 MG PO SCH (09:39)
[2021-06-25 15:09] VITALS: BP 124/48; PULSE 82; TEMP 98.4; O2SAT 100
== END 2021-06-25 17:49 | disposition home health service (06) | DRG 871 ==
LOC: SUATTDRO 18:23 → 2NNU 18:23 → 3NENU 06-22 20:16
PROVIDERS: ADMIT Internal Medicine; ATTEND Internal Medicine